=== PATIENT | female | born 2000 | race Two or more races ===

== ENCOUNTER → 2024-07-06 | Outpatient (REF) | payer OTHER | LOC: M SFHCWAGY 12:40 | PROVIDERS: ATTEND Obstetrics & Gynecology | DX: Z34.93 Encounter for supervision of normal pregnancy, unspecified, third trimester (principal); Z3A.35 35 weeks gestation of pregnancy ==

== ENCOUNTER 2024-08-06 14:42 | Inpatient (IN) | payer OTHER ==
[~2024-08-06] VITALS: Ht 165.1 cm; Wt 74.5 kg
[2024-08-06] VITALS (41 sets, daily range): BP systolic 102–149; BP diastolic 56–86
[2024-08-06] MEDS ORDERED: ACET-907 PO (14:59)
[2024-08-06] MEDS ORDERED: PRENTAB9 PO (15:00)
[2024-08-06] MEDS ORDERED: TUMS750C5 PO (15:00)
[2024-08-06] MEDS ORDERED: HOME MED LIST COMPLETE! XX SCH (15:10)
[2024-08-06] MEDS ORDERED: TRANEXAMIC ACID INJection 1,000 MG in NS 100 ML IV PRN (15:50)
[2024-08-06] MEDS ORDERED: CARBOPROST TROMETHAMINE 250 MCG/ML AMP IM PRN (15:50)
[2024-08-06] MEDS ORDERED: OXYTOCIN INJ 10UNITS/ML 1ML VIAL IM PRN (15:50)
[2024-08-06] MEDS ORDERED: OXYTOCIN DRIP 30 UNITS in IV 1 EA IV PRN (15:50)
[2024-08-06 16:25] LABS: HEMATOCRIT 35.7 % (36.0-47.0); HEMOGLOBIN 12.2 g/dl (12.0-15.5); MEAN CORPUSCULAR HGB CONC 34.2 g/dl (32.0-36.5); MEAN CORPUSCULAR VOLUME 90.8 fl (80.0-96.0); PLATELET COUNT, AUTOMATED 141 10^3/uL (150-450); RED BLOOD COUNT 3.93 10^6/uL (4.00-5.40); WHITE BLOOD COUNT 16.8 10^3/uL (4.0-10.0)
[2024-08-06] MEDS: LR 1,000 ML IV SCH (16:46)
[2024-08-06] MEDS: LACTATED RINGER'S 1000 ML IV STA (16:46)
[2024-08-06 16:52] LABS: URIC ACID 5.2 MG/DL (3.1-7.8)
[2024-08-06 16:54] LABS: LDH LACTATE DEHYDROGENASE 234 U/L (120-246)
[2024-08-06 16:55] LABS: ALT/SGPT 18 U/L (7.0-40); AST/SGOT 21 U/L (<34); BILIRUBIN,TOTAL 0.5 MG/DL (0.3-1.2); CREATININE FOR GFR 0.75 MG/DL (0.55-1.30); GLOMERULAR FILTRATION RATE > 60.0 (>60)
[2024-08-06] MEDS ORDERED: FENTANYL 2MCG/ML ROPIVACAINE 0.2% IN 0.9% NACL 100ML IVBAG As Ordered ONE (17:33)
[2024-08-06 17:35] LABS: HEPATITIS C VIRUS ABY INDEX < 0.02 INDEX (<0.8)
[2024-08-06] MEDS ORDERED: EPIDURAL/PCA KEYS XX PRN (17:35)
[2024-08-06] MEDS ORDERED: LR 500 ML IV PRN (17:35)
[2024-08-06] MEDS ORDERED: ePHEDrine SULFATE 25 MG/5 ML(5MG/ML) SYRINGE IVP PRN (17:35)
[2024-08-06] MEDS ORDERED: diphenhydrAMINE 50MG/ML VIAL IV PRN (17:35)
[2024-08-06] MEDS ORDERED: NALOXONE INJ 0.4MG/1ML VIAL IV PRN (17:35)
[2024-08-06] MEDS ORDERED: ONDANSETRON 4MG 2ML VIAL IV PRN (17:35)
[2024-08-06] MEDS: FENTANYL/ROPIVACAINE/NACL BAG 100 ML EPIDURAL SCH (17:56)
[2024-08-07] VITALS (15 sets, daily range): BP systolic 108–138; BP diastolic 64–77; TEMP 98.9; O2SAT 97–100
[2024-08-07] MEDS: OXYTOCIN DRIP 30 UNITS in IV 1 EA IV PRN (02:16)
[2024-08-07] MEDS: LIDOCAINE 1% MDV 20ML VIAL INFIL PRN (02:16)
[2024-08-07] MEDS: METHYLERGONOVINE MALEATE 0.2MG/ML 1ML VIAL IM PRN (02:16)
[2024-08-07] MEDS ORDERED: RHOGAM 300MCG (1500IU) INJ IM SCH (03:00)
[2024-08-07] MEDS ORDERED: METHYLERGONOVINE MALEATE 0.2 MG TAB PO PRN (03:00)
[2024-08-07] MEDS ORDERED: ONDANSETRON 4MG 2ML VIAL IV PRN (03:00)
[2024-08-07] MEDS ORDERED: ACETAMINOPHEN 500 MG TAB PO PRN (03:00)
[2024-08-07] MEDS: OXYTOCIN DRIP 30 UNITS in IV 1 EA IV SCH (04:04)
[2024-08-07] MEDS: IBUPROFEN 800 MG TAB PO PRN (04:41)
[2024-08-07] MEDS: DOCUSATE SODIUM 100MG CAPSULE PO PRN (08:12)
[2024-08-07] MEDS: PRENATAL VITAMINS CHEWABLE TABLET PO SCH (08:12)
[2024-08-07] MEDS: ACETAMINOPHEN 325 MG TAB PO PRN (13:39)
[2024-08-08 06:00] VITALS: BP 108/59; O2SAT 98
[2024-08-08] MEDS: IBUPROFEN 600MG TAB PO PRN (06:06)
[2024-08-08 18:00] VITALS: BP 121/67; O2SAT 97
[2024-08-09 06:00] VITALS: BP 110/65; O2SAT 99
[2024-08-09] MEDS ORDERED: MEASLES,MUMPS,RUBELLA VACCINE INJ (MMR-II) SC.IMMUN ONE (09:00)
[2024-08-09] MEDS: DIBUCAINE 1% OINTMENT 30GM TOP PRN (09:11)
== END 2024-08-09 11:30 | disposition home or self-care (01) | DRG 807 ==
LOC: M LDO 14:42 → M LDI 15:45 → M OBS 08-07 04:10
PROVIDERS: ADMIT Advanced Practice Midwife; ATTEND Advanced Practice Midwife
PROC: 10E0XZZ Delivery of Products of Conception, External Approach (ICD-10-PCS; principal; 2024-08-07)
PROC: 0KQM0ZZ Repair Perineum Muscle, Open Approach (ICD-10-PCS; 2024-08-07)
DX: O70.1 Second degree perineal laceration during delivery (principal); Z37.0 Single live birth; Z3A.40 40 weeks gestation of pregnancy

== ENCOUNTER → 2024-12-23 | Outpatient (CLI) | payer OTHER ==
[~2024-12-23] MED LIST: ACET-907 PO; PRENTAB9 PO; TUMS750C5 PO
[2024-12-23 18:17] LABS: BASO # 0.1 10^3/uL (0.0-0.2); BASO % 0.8 % (0.0-1.0); EOS # 0.1 10^3/uL (0.0-0.5); EOS % 1.2 % (0.0-3.0); HEMATOCRIT 40.1 % (36.0-47.0); HEMOGLOBIN 12.7 g/dl (12.0-15.5); LYMPH # 2.5 10^3/uL (1.5-5.0); LYMPH % 33.5 % (24.0-44.0); MEAN CORPUSCULAR HEMOGLOBIN 28.3 pg (27.0-33.0); MEAN CORPUSCULAR HGB CONC 31.7 g/dl (32.0-36.5); MEAN CORPUSCULAR VOLUME 89.5 fl (80.0-96.0); MONO # 0.7 10^3/uL (0.0-0.8); MONO % 8.8 % (2.0-8.0); NEUTROPHILS # 4.1 10^3/uL (1.5-8.5); NEUTROPHILS % 55.6 % (36.0-66.0); PLATELET COUNT, AUTOMATED 220 10^3/uL (150-450); RED BLOOD COUNT 4.48 10^6/uL (4.00-5.40); WHITE BLOOD COUNT 7.4 10^3/uL (4.0-10.0)
[2024-12-23 18:48] LABS: IRON (FE) 67 UG/DL (50-170); PERCENT SATURATION 18.9 % (13.2-45.0); TOTAL IRON BINDING CAPACITY 354 UG/DL (250-425)
[2024-12-23 18:49] LABS: BLOOD UREA NITROGEN 14 MG/DL (9-23); CALCIUM LEVEL 9.6 MG/DL (8.5-10.1); CARBON DIOXIDE LEVEL 28 MMOL/L (20-31); CHLORIDE LEVEL 102 MMOL/L (98-107); GLOMERULAR FILTRATION RATE > 90.0 (>60); GLUCOSE, FASTING 81 MG/DL (60-100); POTASSIUM SERUM 3.8 MMOL/L (3.5-5.1); SODIUM LEVEL 139 MMOL/L (136-145)
[2024-12-23 18:51] LABS: FOLATE 15.1 NG/ML (>5.4); THYROID STIMULATING HORMONE 1.897 uIU/ML (0.55-4.78); VITAMIN B12 LEVEL 808 PG/ML (211-911)
[2024-12-23 18:57] LABS: FREE T4 1.12 NG/DL (0.89-1.76)
== END ==
LOC: M PLAIMG 14:54
PROVIDERS: ATTEND Nurse Practitioner Adult Health
DX: M41.9 Scoliosis, unspecified (principal); D50.9 Iron deficiency anemia, unspecified; F53.0 Postpartum depression

== ENCOUNTER → 2025-07-27 | Outpatient (CLI) | payer OTHER | LOC: M RAD 06:22 | PROVIDERS: ATTEND Family Medicine | DX: M54.59 Other low back pain (principal); M54.14 Radiculopathy, thoracic region ==